=== PATIENT | female | born 1985 | race Two or more races ===

== ENCOUNTER 2019-05-23 07:11 | Emergency (ER) | payer SELFPAY ==
[~2019-05-23] VITALS: Ht 162.6 cm; Wt 94.4 kg
[2019-05-23] MEDS ORDERED: methylPREDNISolone SOD SUCC 125 MG/2 ML ONE (07:52)
[2019-05-23] MEDS ORDERED: DIAZEPAM 5 MG/ML, 2ML ONE (07:53)
[2019-05-23] MEDS ORDERED: KETOROLAC 30 MG/1 ML ONE (07:53)
--- NOTE | 2019-05-23 07:59 | NUR ---
PIV ESTABLISHED. PT TOLERATED WITH NO COMPLICATIONS. MEDS ADMINISTERED PER ORDER. PT BEING TAKEN TO MRI
[2019-05-23] MEDS ORDERED: SODIUM CHLORIDE FLUSH 10ML SYR IVF ONE (08:00)
[2019-05-23] MEDS ORDERED: KETOROLAC 30 MG/1 ML IVPush ONE (08:00)
[2019-05-23] MEDS ORDERED: DIAZEPAM 5 MG/ML, 2ML IVPush ONE (08:00)
[2019-05-23] MEDS ORDERED: methylPREDNISolone SOD SUCC 125 MG/2 ML IVPush ONE (08:00)
--- NOTE | 2019-05-23 08:44 | NUR ---
PT BACK FROM IMAGING.
[2019-05-23] MEDS ORDERED: MORPHINE SULFATE 4 MG/ML, 1ML ONE (10:23)
[2019-05-23 10:28] VITALS: BP 126/59
--- NOTE | 2019-05-23 10:29 | NUR ---
PT RESTING COMFORTABLY ON GURNEY. PT STATES "IT'S BETTER. I CAN STILL FEEL IT, BUT NOT LIKE EARLIER." JOSHUA.
[2019-05-23] MEDS ORDERED: MORPHINE SULFATE 4 MG/ML, 1ML IVPush ONE (10:30)
[2019-05-23] MEDS ORDERED: ONDANSETRON 2MG/ML, 2ML ONE (11:10)
[2019-05-23] MEDS ORDERED: ONDANSETRON ODT 4 MG ONE (11:14)
[2019-05-23] MEDS ORDERED: ONDANSETRON ODT 4 MG PO ONE (11:30)
--- NOTE | 2019-05-23 11:45 | NUR ---
Patient/Caregiver given discharge instructions and they have confirmed that they understand the instructions. Patient ambulatory with steady gait. PT ABLE TO AMBULATE WITH NO COMPLICATIONS. PIV D/C WITH TIP INTACT. PRESSURE DRESSING APPLIED. PT LEFT WITH ALL PERSONAL BELONGINGS.
== END 2019-05-23 11:47 | disposition home or self-care (01) ==
LOC: ED 10:05
DX: M51.16 Intervertebral disc disorders with radiculopathy, lumbar region (principal); R26.2 Difficulty in walking, not elsewhere classified
CPT/HCPCS: 72148; 96374; 96375; 99284; J1885; J2270; J2930; J3360; Q0162

== ENCOUNTER 2019-07-25 11:10 | Emergency (ER) | payer SELFPAY ==
[~2019-07-25] VITALS: Ht 162.6 cm; Wt 98.4 kg
[2019-07-25 11:18] VITALS: BP 172/77
[2019-07-25] MEDS ORDERED: KETOROLAC 30 MG/1 ML IM ONE (12:00)
[2019-07-25] MEDS ORDERED: KETOROLAC 60 MG/2 ML ONE (12:01)
== END 2019-07-25 12:12 | disposition home or self-care (01) ==
LOC: ED 12:11
DX: M54.41 Lumbago with sciatica, right side (principal); I21.9 Acute myocardial infarction, unspecified; R06.02 Shortness of breath
CPT/HCPCS: 93005; 96372; 99283; J1885